=== PATIENT | male | born 1985 | race Caucasian/White ===

== ENCOUNTER → 2017-12-15 | Outpatient (CLI) | payer OTHER | LOC: CIMAGING 09:37 | PROVIDERS: ATTEND Family Medicine | DX: M51.36 Other intervertebral disc degeneration, lumbar region (principal) | CPT/HCPCS: 72100-PO ==

== ENCOUNTER → 2018-01-05 | Outpatient (CLI) | payer SELFPAY ==
[~2018-01-05] MED LIST: IOPAMIDOL (ISOVUE-300) 100 ML BTL ONE
== END ==
LOC: FIMAGING 10:30
PROVIDERS: ATTEND Family Medicine
DX: N20.1 Calculus of ureter (principal); M51.27 Other intervertebral disc displacement, lumbosacral region; D17.71 Benign lipomatous neoplasm of kidney
CPT/HCPCS: Q9967